=== PATIENT | male | born 1960 | race American Indian/Alaskan Native ===

== ENCOUNTER 2020-06-23 15:16 | Outpatient (CLI) | payer MEDICARE ==
[2020-06-23 16:13] LABS: Basophils % (Auto) 0.5 % (0.0-1.8); Eosinophils # (Auto) 0.2 K/mm3 (0.0-0.4); Eosinophils % (Auto) 2.7 % (0.0-4.3); Hematocrit 43.6 % (35.5-45.6); Hemoglobin 15.1 gm/dl (11.8-15.2); Lymphocytes # (Auto) 2.1 K/mm3 (1.2-5.4); Lymphocytes % (Auto) 31.8 % (13.4-35.0); Mean Corpuscular HGB Conc 35 % (32-34); Mean Corpuscular Volume 93 fl (84-94); Monocytes # (Auto) 0.7 K/mm3 (0.0-0.8); Monocytes % (Auto) 11.1 % (0.0-7.3); Platelet Count 245 K/mm3 (140-440); Red Cell Distribution Width 15.7 % (13.2-15.2)
[2020-06-23 16:32] LABS: Albumin 3.6 g/dL (3.9-5); Calcium 9.5 mg/dL (8.4-10.2); Chol/HDL Ratio 3.68 %
== END 2020-06-23 15:17 | disposition home or self-care (01) ==
LOC: LAB 15:16
PROVIDERS: ATTEND Internal Medicine
DX: R73.9 Hyperglycemia, unspecified (principal); E78.5 Hyperlipidemia, unspecified; E55.9 Vitamin D deficiency, unspecified; D51.9 Vitamin B12 deficiency anemia, unspecified; D52.9 Folate deficiency anemia, unspecified; R39.11 Hesitancy of micturition; Z13.29 Encounter for screening for other suspected endocrine disorder; Z00.00 Encounter for general adult medical examination without abnormal findings
CPT/HCPCS: 36415; 80053; 80061; 82306; 82607; 83036; 84443; 85025

== ENCOUNTER 2020-12-05 09:17 | Outpatient (CLI) | payer MEDICARE ==
--- NOTE | 2020-12-05 12:37 | Vascular Lab Report ---
DUPLEX DOPPLER UPPER EXTREMITY VENOUS, LEFT INDICATION / CLINICAL INFORMATION: LOCALIZED SWELLING MASS AND LUMP. TECHNIQUE: Duplex doppler imaging was performed through the veins of the left upper extremity using v enous compression and other maneuvers. COMPARISON: None available. FINDINGS: LEFT INTERNAL JUGULAR VEIN: Negative. LEFT SUBCLAVIAN VEIN: Negative. LEFT AXILLARY VEIN: Negative. LEFT BRACHIAL VEIN: Negative. LEFT FOREARM VEINS: Negative. LEFT BASILIC VEIN (SUPERFICIAL): Negative. ADDITIONAL FINDINGS: None. IMPRESSION: 1. No sonographic evidence for DVT. Scribed by: Ifeoma Estevez RDMS, RVT Scribed: 12/05/2020 10:25 AM I have reviewed the images, agree with this report, and edited this report as needed. Signer Name: Paulino Sanchez MD Signed: 12/05/2020 12:32 PM Workstation Name: [id number]
== END 2020-12-05 09:18 | disposition home or self-care (01) ==
LOC: VAS 09:17
PROVIDERS: ATTEND Internal Medicine
DX: R22.31 Localized swelling, mass and lump, right upper limb (principal)